=== PATIENT | female | born 1945 | race Caucasian/White ===

== ENCOUNTER → 2018-06-05 15:23 | Outpatient (CLI) | payer OTHER, SELFPAY ==
--- NOTE | 2018-06-05 | DI.MG.S_ITS ---
BILATERAL DIGITAL SCREENING MAMMOGRAM 3D/2D WITH CAD: 06/05/2018 CLINICAL: Routine screening. Comparison is made to exams dated: 05/30/2017 mammogram, 05/07/2016 mammogram, and 01/26/2015 mammogram - [facility]. There are scattered fibroglandular elements in both breasts. Current study was also evaluated with a Computer Aided Detection (CAD) system. No significant masses, calcifications, or other findings are seen in either breast. There has been no significant interval change. IMPRESSION: NEGATIVE There is no mammographic evidence of malignancy. A 1 year screening mammogram is recommended. This exam was interpreted at Station ID: [id number]. NOTE: For mammograms, a report in lay terms will be sent to the patient. Approximately 15% of breast malignancies will not be visualized mammographically. In the management of a palpable breast mass, a negative mammogram must not discourage biopsy of a clinically suspicious lesion. Electronically Signed By: Mauro wright/cesar:06/06/2018 03:12:15 letter sent: Normal Exam ACR BI-RADS Category 1: Negative 3341F
== END ==
PROVIDERS: Family Provider Physician Assistant; PCP Physician Assistant; Visit Provider Physician Assistant
DX: Z12.31 Encounter for screening mammogram for malignant neoplasm of breast (principal)
CPT/HCPCS: 77063; 77067

== ENCOUNTER → 2018-07-08 08:26 | Outpatient (CLI) | payer OTHER, SELFPAY ==
[2018-07-08 09:51] LABS: Cholesterol 240 mg/dL (140-199); HDL Cholesterol 72 mg/dL (40-60); LDL Cholesterol Calculated 129 mg/dL (<100); Triglycerides 195 mg/dL (35-150)
== END ==
PROVIDERS: PCP Physician Assistant; Visit Provider Physician Assistant
DX: E78.5 Hyperlipidemia, unspecified (principal)
CPT/HCPCS: 36415; 80061

== ENCOUNTER → 2018-08-20 15:22 | Outpatient (CLI) | payer OTHER, SELFPAY ==
--- NOTE | 2018-08-20 15:24 | DI.RAD.S_ITS ---
PROCEDURE: XR WRIST RT MIN 3V INDICATIONS: Bilateral wrist pain and pain at MCP of thumb TECHNIQUE: 4 views of the wrist were acquired. COMPARISON: None. FINDINGS: Bones: No fractures or dislocations. No suspicious bony lesions. 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 Soft tissues: No suspicious soft tissue calcifications. 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 Dictated by: Ibrahima Rodriguez M.D. on 08/20/2018 at 16:26 Approved by: Ibrahima Rodriguez M.D. on 08/20/2018 at 16:27
--- NOTE | 2018-08-20 15:24 | DI.RAD.S_ITS ---
PROCEDURE: XR WRIST LT MIN 3V INDICATIONS: Bilateral wrist pain and pain at MCP of thumb TECHNIQUE: 4 views of the wrist were acquired. COMPARISON: None. FINDINGS: Bones: No fractures or dislocations. No suspicious bony lesions. 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 Soft tissues: No suspicious soft tissue calcifications. 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 Dictated by: Ibrahima Rodriguez M.D. on 08/20/2018 at 16:24 Approved by: Ibrahima Rodriguez M.D. on 08/20/2018 at 16:26
== END ==
PROVIDERS: Family Provider Physician Assistant; PCP Physician Assistant; Visit Provider Physician Assistant
DX: M25.531 Pain in right wrist (principal); M25.532 Pain in left wrist; M18.0 Bilateral primary osteoarthritis of first carpometacarpal joints; M19.032 Primary osteoarthritis, left wrist; M19.031 Primary osteoarthritis, right wrist
CPT/HCPCS: 73110

== ENCOUNTER → 2018-12-10 07:51 | Outpatient (CLI) | payer MEDICARE, SELFPAY ==
[2018-12-10 09:19] LABS: Alanine Aminotransferase 36 IU/L (9-52); Albumin Globulin Ratio 1.5 (1.0-2.8); Alkaline Phosphatase 95 U/L (38-126); Aspartate Aminotransferase 23 IU/L (14-36); BUN Creatinine Ratio 21.4 (6-22); Bilirubin Total 0.4 mg/dL (0.2-1.3); Blood Urea Nitrogen 15 mg/dL (7-17); Calcium 9.5 mg/dL (8.4-10.2); Carbon Dioxide 24 mmol/L (22-32); Chloride 107 mmol/L (98-107); Cholesterol 229 mg/dL (140-199); Estimated Glomerular Filt Rate > 60.0 mL/min (>60); Globulin 2.7 g/dL (1.7-4.1); Glucose 82 mg/dL (80-110); HDL Cholesterol 65 mg/dL (40-60); HEMOLYSIS < 15 (0-50); LDL Cholesterol Calculated 132 mg/dL (<100); Sodium 140 mmol/L (137-145); Total Protein 6.7 g/dL (6.3-8.2); Triglycerides 161 mg/dL (35-150)
[2018-12-10 09:49] LABS: Thyroid Stimulating Hormone 1.09 uIU/mL (0.47-4.68)
== END ==
PROVIDERS: Family Provider Physician Assistant; PCP Physician Assistant; Visit Provider Physician Assistant
DX: E03.9 Hypothyroidism, unspecified (principal); E78.5 Hyperlipidemia, unspecified
CPT/HCPCS: 36415; 80053; 80061; 84443

== ENCOUNTER → 2019-01-19 13:17 | Outpatient (CLI) | payer MEDICARE, SELFPAY | PROVIDERS: Family Provider Physician Assistant; PCP Physician Assistant; Visit Provider Physician Assistant | DX: N30.01 Acute cystitis with hematuria (principal) | CPT/HCPCS: 87077; 87086; 87186 ==

== ENCOUNTER 2019-05-14 16:22 | Emergency (ER) | payer MEDICARE, SELFPAY ==
[2019-05-14 16:24] VITALS: BP 126/80; PULSE 89; RESP 22; TEMP 36.4; O2SAT 95; BMI 30.7
--- NOTE | 2019-05-14 16:31 | DI.RAD.S_ITS ---
PROCEDURE: XR CHEST 2V INDICATIONS: cough, told pneumonia TECHNIQUE: 2 views of the chest were acquired. COMPARISON: None. FINDINGS: Surgical changes and devices: None. Lungs and pleura: Minimal scattered streaky opacity. No focal consolidation identified. No pleural effusions or pneumothorax. Mediastinum: Mediastinal contours are normal. Heart size is normal. Bones and chest wall: No suspicious bony abnormalities. Soft tissues appear unremarkable. IMPRESSION: Mild scattered streaky opacity. Favor atelectasis but in the proper clinical setting pneumonia could have a similar appearance. Dictated by: Jaun Magallon M.D. on 05/14/2019 at 16:46 Approved by: Jaun Magallon M.D. on 05/14/2019 at 16:48
--- NOTE | 2019-05-14 16:55 | PC.NURSE ---
Evaluated by RT in triage after Ekg for respiratory difficulty. They state stable .
[2019-05-14 17:16] LABS: Alanine Aminotransferase 29 IU/L (9-52); Albumin 4.4 g/dL (3.5-5.0); Albumin Globulin Ratio 1.3 (1.0-2.8); Alkaline Phosphatase 120 U/L (38-126); Aspartate Aminotransferase 43 IU/L (14-36); BUN Creatinine Ratio 17.1 (6-22); Bilirubin Total 0.3 mg/dL (0.2-1.3); Blood Urea Nitrogen 12 mg/dL (7-17); Calcium 9.4 mg/dL (8.4-10.2); Carbon Dioxide 27 mmol/L (22-32); Chloride 100 mmol/L (98-107); Estimated Glomerular Filt Rate > 60.0 mL/min (>60); Globulin 3.5 g/dL (1.7-4.1); Glucose 109 mg/dL (80-110); HEMOLYSIS 19 (0-50); Potassium 4.9 mmol/L (3.4-5.1); Sodium 136 mmol/L (137-145); Total Protein 7.9 g/dL (6.3-8.2)
[2019-05-14 17:27] VITALS: BP 133/83; PULSE 82; RESP 18; TEMP 37.3; O2SAT 97
[2019-05-14 17:41] LABS: Add Manual Diff / Slide Review NO; Basophils Absolute Auto 0 /uL (0-100); Basophils Percent Auto 0.6 % (0-2); Eosinophils Absolute Auto 100 /uL (0-450); Eosinophils Percent Auto 0.9 % (2-4); Hematocrit 40.5 % (36-46); Lymphocytes Absolute Auto 1500 /uL (1100-4500); Lymphocytes Percent Auto 25.9 % (25-40); Mean Corpuscular HGB Conc 34.5 % (30-36); Mean Corpuscular Hemoglobin 31.1 PG (26-34); Mean Corpuscular Volume 90.1 fL (80-100); Monocytes Absolute Auto 500 /uL (0-900); Monocytes Percent Auto 9.3 % (3-14); Neutrophils Absolute Auto 3600 /uL (1500-7000); Neutrophils Percent Auto 63.3 % (50-75); Platelet Count 224 X10^3/uL (150-400); Red Cell Distribution Width 14.6 % (11.6-14.8); White Blood Cell Count 5.7 X10^3/uL (4.5-11.0)
[2019-05-14 18:02] LABS: Creatine Kinase 77 U/L (30-135)
[2019-05-14 18:07] LABS: B Type Natriuretic Peptide < 100 (<100)
--- NOTE | 2019-05-14 18:07 | ED.SOB ---
HPI - SOB/Dyspnea General Chief Complaint: Shortness of Breath/Dyspnea Stated Complaint: pneumonia,worsening Time Seen by Provider: 05/14/19 17:58 Source: patient Mode of arrival: ambulatory Limitations: no limitations History of Present Illness 73-year-old female who was seen by her primary doctor yesterday and was clinically diagnosed with pneumonia. Was started on azithromycin. She took the 1st dose of a yesterday and the 2nd dose of it today. She initially stated that she was told by her primary doctor that if she does not improve after 24 hours that she should come to the emergency department for evaluation. She states that she does not feel much better after the 2 doses of the antibiotics but really the reason that she came in today was because she has continued to have a cough and is now having pain when she coughs. She has been taking Mucinex. Related Data Home Medications Medication Instructions Recorded Confirmed ibuprofen 600 mg PO PRN PRN #0 03/14/17 05/14/19 multivitamin [Multiple Vitamins] 1 tab PO DAILY #0 03/14/17 05/14/19 olive leaf extract 250 mg capsule 250 mg PO BID cap 03/31/19 05/14/19 Calcium 2 cap PO BID 04/13/19 05/14/19 Previous Rx's Medication Instructions Recorded levothyroxine 88 mcg tablet 88 mcg PO QAM #90 tab 12/17/18 azithromycin 250 mg tablet See Rx Instructions PO .COMPLEX #6 05/13/19 tab benzonatate [Tessalon Perles] 100 mg PO BID-TID PRN #14 cap 05/14/19 Allergies Allergy/AdvReac Type Severity Reaction Status Date / Time Penicillins AdvReac Intermediate SWELLING Verified 05/13/19 10:05 AND HIVES IN BOTH WRISTS nitrofurantoin AdvReac Mild Abnormal Verified 05/13/19 10:05 heart beat Review of Systems Constitutional Denies fever(s) and Denies headache(s) ENT Ears, Nose, Mouth, and Throat: Denies headache(s) Cardiovascular Comments: Chest pain with cough Respiratory Reports cough Gastrointestinal Gastrointestinal: Denies abdominal pain, Denies nausea and Denies vomiting Integumentary/Breasts Denies lesions and Denies rash Neurologic Denies behavioral changes and Denies headache(s) Psychiatric Denies behavioral changes Hematologic/Lymphatic Denies easy bleeding and Denies easy bruising [facility] Medical History Hypothyroid (Acute) Social History Smoking Status: Never smoker second hand exposure: No alcohol intake: current (a glass of wine, once a week) substance use type: does not use Social History Smoking Status: Never smoker second hand exposure: No alcohol intake: current (a glass of wine, once a week) substance use type: does not use Exam Initial Vital Signs Initial Vital Signs: Vital Signs Temperature 97.5 F L 05/14/19 16:24 Pulse Rate 89 05/14/19 16:24 Respiratory Rate 22 05/14/19 16:24 Blood Pressure 126/80 05/14/19 16:24 Pulse Oximetry 95 05/14/19 16:24 Const General: cooperative, healthy appearing, comfortable, well developed, well groomed and No acute distress Orientation: alert, awake and oriented x3 HENMT Head: normal to inspection and normocephalic Resp Effort & Inspection: normal respiratory effort, cough, not labored and not tachypneic Auscultation: clear to auscultation bilaterally Cardio Rate: regular rate Rhythm: regular rhythm Skin Lesions: no lesions Rashes: no rashes Neuro General: alert and awake Cognition: normal cognition Speech: speech normal Extrem General: normal to inspection and capillary refill normal Psych Appearance: grossly normal and well kempt Course Orders Ordered: ED Orders 05/14/19 16:28 EKG-12 Lead Stat 05/14/19 16:31 Consult to Respiratory Therapy Evaluate & Treat XR chest 2V Stat 05/14/19 16:45 B Type Natriuretic Peptide Stat Complete Blood Count AUTO DIFF Stat Comprehensive Metabolic Panel Stat Troponin & CK Cardiac Panel Stat Vital Signs - 8 hr 05/14/19 16:24 05/14/19 17:27 05/14/19 18:33 Temperature 97.5 F L 99.1 F Pulse Rate 89 82 92 H Respiratory Rate 22 18 15 Blood Pressure 126/80 Blood Pressure [Right Arm] 133/83 124/78 Pulse Oximetry 95 97 95 MDM - SOB/Dyspnea Lab Data Attestation: I reviewed the patient's lab results. Result diagrams: 05/14/19 16:45 05/14/19 16:45 Lab Results 05/14/19 05/14/19 05/14/19 Range/Units 16:45 16:45 16:45 WBC 5.7 (4.5-11.0) X10^3/uL RBC 4.50 (4.0-5.2) X10^6/uL Hgb 14.0 (12.0-16.0) g/dL Hct 40.5 (36-46) % MCV 90.1 (80-100) fL MCH 31.1 (26-34) PG MCHC 34.5 (30-36) % RDW 14.6 (11.6-14.8) % Plt Count 224 (150-400) X10^3/uL Neut % (Auto) 63.3 (50-75) % Lymph % (Auto) 25.9 (25-40) % [place] % (Auto) 9.3 (3-14) % Eos % (Auto) 0.9 L (2-4) % Baso % (Auto) 0.6 (0-2) % Neut # (Auto) 3600 (0168-7336) /uL Lymph # (Auto) 1500 (8610-1479) /uL [place] # (Auto) 500 (0-900) /uL Eos # (Auto) 100 (0-450) /uL Baso # (Auto) 0 (0-100) /uL Sodium 136 L (137-145) mmol/L Potassium 4.9 (3.4-5.1) mmol/L Chloride 100 (98-107) mmol/L Carbon Dioxide 27 (22-32) mmol/L BUN 12 (7-17) mg/dL Creatinine 0.70 (0.52-1.04) mg/dL Estimated GFR > 60.0 (>60) mL/min BUN/Creatinine Ratio 17.1 (6-22) Glucose 109 (80-110) mg/dL Calcium 9.4 (8.4-10.2) mg/dL Total Bilirubin 0.3 (0.2-1.3) mg/dL AST 43 H (14-36) IU/L ALT 29 (9-52) IU/L Alkaline Phosphatase 120 (38-126) U/L Total Creatine Kinase 77 (30-135) U/L CK-MB (CK-2) TNP CK-MB (CK-2) Rel Index TNP Troponin I < 0.012 (0.01-0.034) ng/mL B-Natriuretic Peptide (<100) Total Protein 7.9 (6.3-8.2) g/dL Albumin 4.4 (3.5-5.0) g/dL Globulin 3.5 (1.7-4.1) g/dL Albumin/Globulin Ratio 1.3 (1.0-2.8) 05/14/19 Range/Units 16:45 WBC (4.5-11.0) X10^3/uL RBC (4.0-5.2) X10^6/uL Hgb (12.0-16.0) g/dL Hct (36-46) % MCV (80-100) fL MCH (26-34) PG MCHC (30-36) % RDW (11.6-14.8) % Plt Count (150-400) X10^3/uL Neut % (Auto) (50-75) % Lymph % (Auto) (25-40) % [place] % (Auto) (3-14) % Eos % (Auto) (2-4) % Baso % (Auto) (0-2) % Neut # (Auto) (4072-8832) /uL Lymph # (Auto) (1439-1692) /uL [place] # (Auto) (0-900) /uL Eos # (Auto) (0-450) /uL Baso # (Auto) (0-100) /uL Sodium (137-145) mmol/L Potassium (3.4-5.1) mmol/L Chloride (98-107) mmol/L Carbon Dioxide (22-32) mmol/L BUN (7-17) mg/dL Creatinine (0.52-1.04) mg/dL Estimated GFR (>60) mL/min BUN/Creatinine Ratio (6-22) Glucose (80-110) mg/dL Calcium (8.4-10.2) mg/dL Total Bilirubin (0.2-1.3) mg/dL AST (14-36) IU/L ALT (9-52) IU/L Alkaline Phosphatase (38-126) U/L Total Creatine Kinase (30-135) U/L CK-MB (CK-2) CK-MB (CK-2) Rel Index Troponin I (0.01-0.034) ng/mL B-Natriuretic Peptide < 100 (<100) Total Protein (6.3-8.2) g/dL Albumin (3.5-5.0) g/dL Globulin (1.7-4.1) g/dL Albumin/Globulin Ratio (1.0-2.8) Imaging Data Chest x-ray: Radiologist's impression: [address] [id number] XRay Report Signed Patient: [place] Pham EMR#: [id number] : 6Acct:[id number] Age/Sex: 73 / FDate of Service: 05/14/19 Loc: ED Accession Number: [id number] Procedure: XR chest 2V Ordering Provider: Bernie Alvarenga D.O. PROCEDURE: XR CHEST 2V INDICATIONS: cough, told pneumonia TECHNIQUE: 2 views of the chest were acquired. COMPARISON: None. FINDINGS: Surgical changes and devices: None. Lungs and pleura: Minimal scattered streaky opacity. No focal consolidation identified. No pleural effusions or pneumothorax. Mediastinum: Mediastinal contours are normal. Heart size is normal. Bones and chest wall: No suspicious bony abnormalities. Soft tissues appear unremarkable. IMPRESSION: Mild scattered streaky opacity. Favor atelectasis but in the proper clinical setting pneumonia could have a similar appearance. Dictated by: Jaun Magallon M.D. on 05/14/2019 at 16:46 Approved by: Jaun Magallon M.D. on 05/14/2019 at 16:48 [facility] Narrative Medical decision making narrative: No respiratory distress. Her chest x-ray does have some findings consistent with pneumonia however she is currently on azithromycin for this. We did discuss the cough. Informed the patient that there is no medicine that will be guarantee to take the cough away. She is going to continue with the Mucinex. Will start her on Tessalon Perles. Patient does not need admitted to the hospital. Will hold on further workup. She was given return precautions and follow-up instructions. She expressed understanding and agreement plan. Discharge Plan Departure Patient Disposition: Home Clinical Impression: Cough Pneumonia Qualifiers: Pneumonia type: due to unspecified organism Laterality: unspecified laterality Lung location: unspecified part of lung Qualified Code(s): J18.9 - Pneumonia, unspecified organism Discharge Date/Time: 05/14/19 18:59 Interventions: ED Discharge Assessment Last Done: 05/14/19 18:59 Instructions: DI for Cough -- Adult Activity Restrictions/Additional Instructions: Continue all of your antibiotics as directed start taking the prescription for the cough that you were given today. Remember that this may not take her cough completely away. Return to the emergency department for any new or worsening symptoms Prescriptions: New benzonatate [Tessalon Perles] 100 mg capsule 100 mg PO BID-TID PRN (Reason: cough) Qty: 14 RF: 0 No Action levothyroxine 88 mcg tablet 88 mcg PO QAM Qty: 90 RF: 3 ibuprofen 200 MG tablet 600 mg PO PRN PRN (Reason: pain) Qty: 0 RF: 0 multivitamin [Multiple Vitamins] 1 EACH tablet 1 tab PO DAILY Qty: 0 RF: 0 Calcium 2 cap PO BID RF: 0 azithromycin 250 mg tablet See Rx Instructions PO .COMPLEX Qty: 6 RF: 0 olive leaf extract 250 mg capsule 250 mg PO BID RF: 0 Referrals: Sakshi Galvan PA-C [Primary Care Provider] -
[2019-05-14 18:15] LABS: Troponin I < 0.012 ng/mL (0.01-0.034)
[2019-05-14 18:33] VITALS: BP 124/78; PULSE 92; RESP 15; O2SAT 95
== END 2019-05-14 18:59 | disposition home or self-care (01) ==
PROVIDERS: Emergency Medicine; Emergency Provider Emergency Medicine; Family Provider Physician Assistant; PCP Physician Assistant
DX: J18.9 Pneumonia, unspecified organism (principal)
CPT/HCPCS: 36415; 71046; 80053; 82550; 83880; 84484; 85025; 93005; 99282; 99285

== ENCOUNTER → 2019-06-16 16:22 | Outpatient (CLI) | payer MEDICARE, SELFPAY ==
--- NOTE | 2019-06-16 | DI.MG.S_ITS ---
BILATERAL DIGITAL SCREENING MAMMOGRAM 3D/2D WITH CAD: 06/16/2019 CLINICAL: Routine screening. Comparison is made to exams dated: 06/05/2018 mammogram, 05/30/2017 mammogram, and 05/07/2016 mammogram - [facility]. There are scattered fibroglandular elements in both breasts. Current study was also evaluated with a Computer Aided Detection (CAD) system. No significant masses, calcifications, or other findings are seen in either breast. There has been no significant interval change. IMPRESSION: NEGATIVE There is no mammographic evidence of malignancy. A 1 year screening mammogram is recommended. This exam was interpreted at Station ID: [id number]. NOTE: For mammograms, a report in lay terms will be sent to the patient. Approximately 15% of breast malignancies will not be visualized mammographically. In the management of a palpable breast mass, a negative mammogram must not discourage biopsy of a clinically suspicious lesion. Electronically Signed By: Fany pack/cesar:06/16/2019 16:54:17 letter sent: Normal Exam ACR BI-RADS Category 1: Negative 3341F
== END ==
PROVIDERS: PCP Physician Assistant; Visit Provider Physician Assistant
DX: Z12.31 Encounter for screening mammogram for malignant neoplasm of breast (principal)
CPT/HCPCS: 77063; 77067

== ENCOUNTER → 2019-07-29 07:15 | Outpatient (CLI) | payer MEDICARE, SELFPAY ==
[2019-07-29 08:11] LABS: Cholesterol 246 mg/dL (140-199); HDL Cholesterol 62 mg/dL (40-60); LDL Cholesterol Calculated 141 mg/dL (<100); Triglycerides 217 mg/dL (35-150)
== END ==
PROVIDERS: PCP Physician Assistant; Visit Provider Physician Assistant
DX: E78.2 Mixed hyperlipidemia (principal)
CPT/HCPCS: 36415; 80061

== ENCOUNTER → 2019-07-31 14:36 | Outpatient (CLI) | payer MEDICARE, SELFPAY | PROVIDERS: PCP Physician Assistant; Visit Provider Physician Assistant | DX: M81.0 Age-related osteoporosis without current pathological fracture (principal); Z78.0 Asymptomatic menopausal state; Z82.62 Family history of osteoporosis | CPT/HCPCS: 77080 ==

== ENCOUNTER → 2019-12-08 13:22 | Outpatient (CLI) | payer MEDICARE, SELFPAY | PROVIDERS: PCP Physician Assistant; Visit Provider Family Medicine | DX: N39.0 Urinary tract infection, site not specified (principal) | CPT/HCPCS: 87077; 87086; 87186 ==

== ENCOUNTER → 2020-03-10 11:46 | Outpatient (CLI) | payer MEDICARE, SELFPAY ==
[2020-03-10 12:22] LABS: Hematocrit 38.2 % (36-46); Hemoglobin 13.1 g/dL (12.0-16.0); Mean Corpuscular HGB Conc 34.4 % (30-36); Mean Corpuscular Hemoglobin 31.2 PG (26-34); Mean Corpuscular Volume 90.8 fL (80-100); Platelet Count 251 X10^3/uL (150-400); Red Blood Cell Count 4.21 X10^6/uL (4.0-5.2); Red Cell Distribution Width 14.2 % (11.6-14.8); White Blood Cell Count 5.1 X10^3/uL (4.5-11.0)
[2020-03-10 12:50] LABS: Alanine Aminotransferase 21 IU/L (<35); Albumin 4.6 g/dL (3.5-5.0); Albumin Globulin Ratio 1.7 (1.0-2.8); Alkaline Phosphatase 93 U/L (38-126); Aspartate Aminotransferase 30 IU/L (14-36); BUN Creatinine Ratio 18.7 (6-22); Bilirubin Total 0.3 mg/dL (0.2-1.3); Blood Urea Nitrogen 14 mg/dL (7-17); Calcium 9.9 mg/dL (8.4-10.2); Carbon Dioxide 26 mmol/L (22-32); Chloride 104 mmol/L (98-107); Cholesterol 212 mg/dL (140-199); Estimated Glomerular Filt Rate > 60.0 mL/min (>60); Globulin 2.7 g/dL (1.7-4.1); Glucose 100 mg/dL (80-110); HDL Cholesterol 61 mg/dL (40-60); HEMOLYSIS < 15 (0-50); LDL Cholesterol Calculated 113 mg/dL (<100); Potassium 4.8 mmol/L (3.4-5.1); Sodium 136 mmol/L (137-145); Total Protein 7.3 g/dL (6.3-8.2); Triglycerides 188 mg/dL (35-150)
[2020-03-10 13:09] LABS: TSH w/ Reflex to FT4 1.07 uIU/mL (0.47-4.68)
== END ==
PROVIDERS: PCP Registered Nurse Diabetes Educator; Referring Provider Registered Nurse Diabetes Educator; Visit Provider Registered Nurse Diabetes Educator
DX: E78.2 Mixed hyperlipidemia (principal); E03.9 Hypothyroidism, unspecified
CPT/HCPCS: 36415; 80053; 80061; 84443; 85027

== ENCOUNTER → 2020-06-24 07:53 | Outpatient (CLI) | payer MEDICARE, SELFPAY ==
[2020-06-24 10:02] LABS: Cholesterol 227 mg/dL (140-199); Glucose 79 mg/dL (80-110); HDL Cholesterol 79 mg/dL (40-60); LDL Cholesterol Calculated 117 mg/dL (<100); Triglycerides 155 mg/dL (35-150)
== END ==
PROVIDERS: PCP Registered Nurse Diabetes Educator; Referring Provider Registered Nurse Diabetes Educator; Visit Provider Registered Nurse Diabetes Educator
DX: Z13.1 Encounter for screening for diabetes mellitus (principal); E78.2 Mixed hyperlipidemia
CPT/HCPCS: 36415; 80061; 82947

== ENCOUNTER → 2020-06-28 16:15 | Outpatient (CLI) | payer MEDICARE, SELFPAY ==
--- NOTE | 2020-06-28 16:17 | DI.MG.S_ITS ---
BILATERAL DIGITAL SCREENING MAMMOGRAM 3D/2D WITH CAD: 06/28/2020 CLINICAL: Routine screening. Comparison is made to exams dated: 06/16/2019 mammogram, 06/05/2018 mammogram, and 05/30/2017 mammogram - [facility]. There are scattered fibroglandular elements in both breasts. Current study was also evaluated with a Computer Aided Detection (CAD) system. No significant masses, calcifications, or other findings are seen in either breast. There has been no significant interval change. IMPRESSION: NEGATIVE There is no mammographic evidence of malignancy. A 1 year screening mammogram is recommended. This exam was interpreted at Station ID: [id number]. NOTE: For mammograms, a report in lay terms will be sent to the patient. Approximately 15% of breast malignancies will not be visualized mammographically. In the management of a palpable breast mass, a negative mammogram must not discourage biopsy of a clinically suspicious lesion. Electronically Signed By: Alejandro miranda/cesar:06/28/2020 16:49:23 letter sent: Normal Exam ACR BI-RADS Category 1: Negative 3341F
== END ==
PROVIDERS: PCP Registered Nurse Diabetes Educator; Referring Provider Registered Nurse Diabetes Educator; Visit Provider Registered Nurse Diabetes Educator
DX: Z12.31 Encounter for screening mammogram for malignant neoplasm of breast (principal)
CPT/HCPCS: 77063; 77067

== ENCOUNTER → 2021-01-25 14:16 | Outpatient (CLI) | payer MEDICARE, SELFPAY | PROVIDERS: PCP Registered Nurse Diabetes Educator; Visit Provider Student in an Organized Health Care Education/Training Program | DX: R30.0 Dysuria (principal) | CPT/HCPCS: 87077; 87086; 87186 ==

== ENCOUNTER → 2021-03-23 07:15 | Outpatient (CLI) | payer MEDICARE, SELFPAY ==
[2021-03-23 07:45] LABS: Hematocrit 38.4 % (36-46); Hemoglobin 12.6 g/dL (12.0-16.0); Mean Corpuscular HGB Conc 32.9 % (30-36); Mean Corpuscular Volume 91.1 fL (80-100); Platelet Count 269 X10^3/uL (150-400); Red Blood Cell Count 4.22 X10^6/uL (4.0-5.2); Red Cell Distribution Width 14.2 % (11.6-14.8); White Blood Cell Count 5.2 X10^3/uL (4.5-11.0)
[2021-03-23 08:03] LABS: Alanine Aminotransferase 18 IU/L (<35); Albumin 4.1 g/dL (3.5-5.0); Albumin Globulin Ratio 1.4 (1.0-2.8); Alkaline Phosphatase 93 U/L (38-126); Aspartate Aminotransferase 29 IU/L (14-36); BUN Creatinine Ratio 14.3 (6-22); Bilirubin Total 0.6 mg/dL (0.2-1.3); Blood Urea Nitrogen 10 mg/dL (7-17); Calcium 9.4 mg/dL (8.4-10.2); Carbon Dioxide 26 mmol/L (22-32); Chloride 104 mmol/L (98-107); Cholesterol 195 mg/dL (140-199); Estimated Glomerular Filt Rate > 60.0 mL/min (>60); Globulin 2.9 g/dL (1.7-4.1); Glucose 91 mg/dL (80-110); HDL Cholesterol 61 mg/dL (40-60); HEMOLYSIS < 15 (0-50); LDL Cholesterol Calculated 106 mg/dL (<100); Potassium 4.2 mmol/L (3.4-5.1); Sodium 137 mmol/L (137-145); Triglycerides 140 mg/dL (35-150)
[2021-03-23 08:47] LABS: TSH w/ Reflex to FT4 1.22 uIU/mL (0.47-4.68)
== END ==
PROVIDERS: PCP Registered Nurse Diabetes Educator; Referring Provider Registered Nurse Diabetes Educator; Visit Provider Registered Nurse Diabetes Educator
DX: E03.9 Hypothyroidism, unspecified (principal); E78.5 Hyperlipidemia, unspecified; R73.9 Hyperglycemia, unspecified; R74.8 Abnormal levels of other serum enzymes; Z86.2 Personal history of diseases of the blood and blood-forming organs and certain disorders involving the immune mechanism
CPT/HCPCS: 36415; 80053; 80061; 84443; 85027

== ENCOUNTER → 2021-04-24 16:45 | Outpatient (CLI) | payer MEDICARE, SELFPAY ==
[2021-04-24 18:24] LABS: COVID19 -Nasal RAPID Negative (Negative)
== END ==
PROVIDERS: PCP Registered Nurse Diabetes Educator; Visit Provider Physician Assistant
DX: J02.9 Acute pharyngitis, unspecified (principal); R51.9 Headache, unspecified; Z20.822 Contact with and (suspected) exposure to COVID-19
CPT/HCPCS: 87635

== ENCOUNTER → 2021-06-29 10:04 | Outpatient (CLI) | payer MEDICARE, SELFPAY ==
--- NOTE | 2021-06-29 | DI.MG.S_ITS ---
BILATERAL DIGITAL SCREENING MAMMOGRAM 3D/2D WITH CAD: 06/29/2021 CLINICAL: Routine screening. Comparison is made to exams dated: 06/28/2020 mammogram, 06/16/2019 mammogram, and 06/05/2018 mammogram - [facility]. There are scattered fibroglandular elements in both breasts. Current study was also evaluated with a Computer Aided Detection (CAD) system. No significant masses, calcifications, or other findings are seen in either breast. There has been no significant interval change. IMPRESSION: NEGATIVE There is no mammographic evidence of malignancy. A 1 year screening mammogram is recommended. This exam was interpreted at Station ID: [id number]. NOTE: For mammograms, a report in lay terms will be sent to the patient. Approximately 15% of breast malignancies will not be visualized mammographically. In the management of a palpable breast mass, a negative mammogram must not discourage biopsy of a clinically suspicious lesion. Electronically Signed By: Alejandro miranda/cesar:06/29/2021 12:54:06 letter sent: Normal Exam ACR BI-RADS Category 1: Negative 3341F
== END ==
PROVIDERS: PCP Registered Nurse Diabetes Educator; Referring Provider Registered Nurse Diabetes Educator; Visit Provider Registered Nurse Diabetes Educator
DX: Z12.31 Encounter for screening mammogram for malignant neoplasm of breast (principal)
CPT/HCPCS: 77063; 77067

== ENCOUNTER → 2021-07-11 16:08 | Outpatient (CLI) | payer MEDICARE, SELFPAY ==
[2021-07-11 17:22] LABS: C-Reactive Protein Quant < 0.5 mg/dL (<1.0)
[2021-07-12 14:54] LABS: Occult Blood 1 Negative (Negative)
[2021-07-12 15:42] LABS: Deamidated Gliadin Ab IgA 4 units (0-19); Deamidated Gliadin Ab IgG 2 units (0-19); Immunoglobulin A,Qn 228 mg/dL (64-422); t-Transglutaminase IgA <2 U/mL (0-3)
[2021-07-13 15:09] LABS: Almond IgE <0.10 kU/L (Class 0); Cashew Nut IgE <0.10 kU/L (Class 0); Codfish Allergy IgE < 0.10 kU/L (Class 0); Egg White IgE <0.10 kU/L (Class 0); Hazelnut IgE <0.10 kU/L (Class 0); Milk IgE <0.10 kU/L (Class 0); Peanut IgE <0.10 kU/L (Class 0); Salmon Allergy IgE < 0.10 kU/L (Class 0); Scallop Allergy IgE < 0.10 kU/L (Class 0); Sesame seed Allergy IgE < 0.10 kU/L (Class 0); Shrimp IgE <0.10 kU/L (Class 0); Soybean IgE <0.10 kU/L (Class 0); Tuna Allergy IgE < 0.10 kU/L (Class 0); Walnut IgE <0.10 kU/L (Class 0); Wheat Allergy IgE < 0.10 kU/L (Class 0)
[2021-07-14 16:44] LABS: Calprotectin, Stool 37 ug/g (0-120)
== END ==
PROVIDERS: PCP Registered Nurse Diabetes Educator; Referring Provider Registered Nurse Diabetes Educator; Visit Provider Registered Nurse Diabetes Educator
DX: K52.9 Noninfective gastroenteritis and colitis, unspecified (principal)
CPT/HCPCS: 36415; 82270; 82784; 83516; 83993; 86003; 86140

== ENCOUNTER → 2021-10-03 10:10 | Outpatient (CLI) | payer MEDICARE, SELFPAY | PROVIDERS: PCP Registered Nurse Diabetes Educator; Referring Provider Registered Nurse Diabetes Educator; Visit Provider Registered Nurse Diabetes Educator | DX: M85.88 Other specified disorders of bone density and structure, other site (principal); Z78.0 Asymptomatic menopausal state; Z82.62 Family history of osteoporosis | CPT/HCPCS: 77080 ==

== ENCOUNTER → 2021-12-29 14:07 | Outpatient (CLI) | payer MEDICARE, SELFPAY ==
--- NOTE | 2021-12-29 14:08 | DI.US.S_ITS ---
ULTRASOUND OF LEFT BREAST: 12/29/2021 CLINICAL: Left axillary 'irritation' x years. Comparison is made to exams dated: 06/29/2021 mammogram, 06/28/2020 mammogram, and 06/16/2019 mammogram - [facility]. Color flow, Doppler, and continuous wave Doppler ultrasound of the left breast were performed. No abnormality which corresponds with the area of itching is identified. IMPRESSION: NEGATIVE There is no sonographic evidence of malignancy. There is no abnormality seen in the left breast to correspond with the area of clinical concern in the axilla, however, clinical followup is recommended. Return to annual mammogram screening schedule is recommended. This exam was interpreted at Station ID: [id number]. Electronically Signed By: Rusty Silverman acr/:12/29/2021 15:17:45 letter sent: Normal Exam Ultrasound BI-RADS: 1 Negative
== END ==
PROVIDERS: PCP Registered Nurse Diabetes Educator; Referring Provider Registered Nurse Diabetes Educator; Visit Provider Registered Nurse Diabetes Educator
DX: M79.622 Pain in left upper arm (principal); N64.4 Mastodynia
CPT/HCPCS: 76882

== ENCOUNTER → 2022-01-04 14:27 | Outpatient (CLI) | payer MEDICARE, SELFPAY ==
[2022-01-04 15:26] LABS: BUN Creatinine Ratio 24.1 (6-22); Blood Urea Nitrogen 20 mg/dL (7-17); Calcium 9.1 mg/dL (8.4-10.2); Carbon Dioxide 26 mmol/L (22-32); Chloride 107 mmol/L (98-107); Estimated Glomerular Filt Rate > 60 mL/min (>60); Glucose 89 mg/dL (80-110); HEMOLYSIS < 15 (0-50); Potassium 4.6 mmol/L (3.4-5.1); Sodium 138 mmol/L (137-145)
== END ==
PROVIDERS: PCP Registered Nurse Diabetes Educator; Referring Provider Registered Nurse Diabetes Educator; Visit Provider Registered Nurse Diabetes Educator
DX: R60.9 Edema, unspecified (principal)
CPT/HCPCS: 36415; 80048

== ENCOUNTER → 2022-07-17 11:47 | Outpatient (CLI) | payer MEDICARE, SELFPAY ==
--- NOTE | 2022-07-17 | DI.MG.S_ITS ---
BILATERAL DIGITAL SCREENING MAMMOGRAM 3D/2D WITH CAD: 07/17/2022 CLINICAL: Routine screening. Comparison is made to exams dated: 06/29/2021 mammogram, 06/28/2020 mammogram, and 06/16/2019 mammogram - [facility]. There are scattered areas of fibroglandular density in both breasts (category b / 25%-50% glandular tissue). Current study was also evaluated with a Computer Aided Detection (CAD) system. No significant masses, calcifications, or other findings are seen in either breast. There has been no significant interval change. IMPRESSION: NEGATIVE There is no mammographic evidence of malignancy. A 1 year screening mammogram is recommended. Based on the Tyrer Cuzick model (a risk assessment model) the patient's lifetime risk is 3.6% and her 10 year risk is 0.0%. According to the ACR, ACS, and NCCN guidelines, an annual breast MRI exam along with mammogram is recommended if the patient's lifetime risk is 20% or greater. This exam was interpreted at Station ID: [id number]. NOTE: For mammograms, a report in lay terms will be sent to the patient. Approximately 15% of breast malignancies will not be visualized mammographically. In the management of a palpable breast mass, a negative mammogram must not discourage biopsy of a clinically suspicious lesion. Electronically Signed By: Sp gee/cesar:07/17/2022 13:38:30 letter sent: Normal Exam ACR BI-RADS Category 1: Negative 3341F
== END ==
PROVIDERS: PCP Registered Nurse Diabetes Educator; Referring Provider Registered Nurse Diabetes Educator; Visit Provider Registered Nurse Diabetes Educator
DX: Z12.31 Encounter for screening mammogram for malignant neoplasm of breast (principal)
CPT/HCPCS: 77063; 77067

== ENCOUNTER → 2022-08-14 16:00 | Outpatient (CLI) | payer MEDICARE, SELFPAY | PROVIDERS: PCP Registered Nurse Diabetes Educator; Visit Provider Physician Assistant Medical | DX: R30.0 Dysuria (principal) | CPT/HCPCS: 87077; 87086; 87186 ==

== ENCOUNTER → 2022-10-10 16:44 | Outpatient (CLI) | payer MEDICARE, SELFPAY ==
[2022-10-10 17:17] LABS: Add Manual Diff / Slide Review NO; Basophils Absolute Auto 0 /uL (0-100); Basophils Percent Auto 0.4 % (0-2); Eosinophils Absolute Auto 100 /uL (0-450); Eosinophils Percent Auto 1.3 % (2-4); Hematocrit 37.7 % (36-46); Hemoglobin 12.9 g/dL (12.0-16.0); Lymphocytes Absolute Auto 2800 /uL (1100-4500); Lymphocytes Percent Auto 35.5 % (25-40); Mean Corpuscular HGB Conc 34.2 % (30-36); Mean Corpuscular Hemoglobin 30.7 PG (26-34); Mean Corpuscular Volume 89.9 fL (80-100); Monocytes Absolute Auto 600 /uL (0-900); Monocytes Percent Auto 7.2 % (3-14); Neutrophils Absolute Auto 4400 /uL (1500-7000); Neutrophils Percent Auto 55.6 % (50-75); Platelet Count 267 X10^3/uL (150-400); Red Blood Cell Count 4.19 X10^6/uL (4.0-5.2); Red Cell Distribution Width 14.5 % (11.6-14.8)
[2022-10-10 18:18] LABS: Free T3, Triiodothyronine Free 3.35 pg/mL (2.77-5.27); Free T4, Direct Thyroxine 1.23 ng/dL (0.78-2.19)
[2022-10-10 18:26] LABS: Alanine Aminotransferase 29 IU/L (<35); Alkaline Phosphatase 102 U/L (38-126); Aspartate Aminotransferase 31 IU/L (14-36); BUN Creatinine Ratio 28.4 (6-22); Bilirubin Total 0.3 mg/dL (0.2-1.3); Blood Urea Nitrogen 23 mg/dL (7-17); Calcium 9.3 mg/dL (8.4-10.2); Carbon Dioxide 25 mmol/L (22-32); Chloride 103 mmol/L (98-107); Estimated Glomerular Filt Rate > 60 mL/min (>60); Glucose 96 mg/dL (80-110); HEMOLYSIS < 15 (0-50); Potassium 4.8 mmol/L (3.4-5.1); Sodium 137 mmol/L (137-145); Total Protein 7.4 g/dL (6.3-8.2)
[2022-10-10 18:32] LABS: Thyroid Stimulating Hormone 1.06 uIU/mL (0.47-4.68)
[2022-10-12 16:47] LABS: Albumin 4.3 g/dL (3.5-5.0); Albumin Globulin Ratio 1.4 (1.0-2.8); Globulin 3.1 g/dL (1.7-4.1)
== END ==
PROVIDERS: PCP Nurse Practitioner; Referring Provider Nurse Practitioner; Visit Provider Nurse Practitioner
DX: E03.9 Hypothyroidism, unspecified (principal); R53.83 Other fatigue
CPT/HCPCS: 36415; 80053; 84439; 84443; 84481; 85025

== ENCOUNTER → 2023-07-30 14:22 | Outpatient (CLI) | payer MEDICARE, SELFPAY ==
--- NOTE | 2023-07-30 | DI.MG.S_ITS ---
BILATERAL DIGITAL SCREENING MAMMOGRAM 3D/2D WITH CAD: 07/30/2023 CLINICAL: Routine screening. Comparison is made to exams dated: 07/17/2022 mammogram, 06/29/2021 mammogram, and 06/28/2020 mammogram - [facility]. There are scattered areas of fibroglandular density in both breasts (category b / 25%-50% glandular tissue). Current study was also evaluated with a Computer Aided Detection (CAD) system. No significant masses, calcifications, or other findings are seen in either breast. There has been no significant interval change. IMPRESSION: NEGATIVE There is no mammographic evidence of malignancy. A 1 year screening mammogram is recommended. Based on the Tyrer Cuzick model (a risk assessment model) the patient's lifetime risk is 3.2% and her 10 year risk is 0.0%. According to the ACR, ACS, and NCCN guidelines, an annual breast MRI exam along with mammogram is recommended if the patient's lifetime risk is 20% or greater. This exam was interpreted at Station ID: [id number]. NOTE: For mammograms, a report in lay terms will be sent to the patient. Approximately 15% of breast malignancies will not be visualized mammographically. In the management of a palpable breast mass, a negative mammogram must not discourage biopsy of a clinically suspicious lesion. Electronically Signed By: Jaun faria/cesar:07/30/2023 16:53:17 letter sent: Normal Exam ACR BI-RADS Category 1: Negative 3341F
== END ==
PROVIDERS: PCP Nurse Practitioner; Referring Provider Nurse Practitioner; Visit Provider Nurse Practitioner
DX: Z12.31 Encounter for screening mammogram for malignant neoplasm of breast (principal)
CPT/HCPCS: 77063; 77067

== ENCOUNTER → 2023-12-04 13:47 | Outpatient (CLI) | payer MEDICARE, SELFPAY ==
[2023-12-04 15:46] LABS: Thyroid Stimulating Hormone 0.611 uIU/mL (0.47-4.68)
== END ==
PROVIDERS: PCP Nurse Practitioner; Referring Provider Nurse Practitioner; Visit Provider Nurse Practitioner
DX: E03.9 Hypothyroidism, unspecified (principal); N89.8 Other specified noninflammatory disorders of vagina
CPT/HCPCS: 36415; 84443; 87070; 87205

== ENCOUNTER 2024-03-20 11:15 | Outpatient (RCR) | payer MEDICARE, SELFPAY ==
--- NOTE | 2024-02-20 17:51 | PT.OIE ---
Current Diagnoses Other specified disorders of muscle (02/20/24) Full incontinence of feces (02/20/24) Past Medical History (Last Updated 12/04/23 @ 14:48 by KELLI Zavala) Hypothyroid Insomnia Obesity Seborrheic keratosis Urinary tract infection Visit Care Team Role Provider Type KELLI Zavala Attending Provider Advanced Didactic Instructor Family Provider Primary Care Provider Referring Provider Specialty: Family Practice Address: [address] [place] [address], [facility] Email: [email or web address] Physical Therapy Initial Evaluation PT-OP-A Visit Information Start: 02/20/24 08:40 Freq: Status: Active Protocol: Document 02/20/24 13:50 LRN (Rec: 02/20/24 14:38 LRN [id number]) Out-Patient Physical Therapy Visit Information Visit Information Visit Type Initial Evaluation Visit Start Time 13:50 Visit Stop Time 14:33 Visit Number 1 Evaluation Information Evaluation Date 02/20/24 Precautions Precautions Osteoporosis, Arthritis, sanjuana knee replacements in 2015 PT-OP-B Current Condition Start: 02/20/24 08:40 Freq: Status: Active Protocol: Document 02/20/24 13:50 LRN (Rec: 02/20/24 14:38 LRN [id number]) Current Condition History of Current Condition Onset Date 2 months ago Current Complaints Mild anal leakage at the opening, skin burning pain diaper rash like History of Current Condition Insidious onset within the past 6 yr, a little anal leakage. Has noticed if she stays away from sugary foods, she has BM's that are less extra-soft. When really bad she takes anti-diarrhea medicine. Doesn't wear a pad because the fecal matter stays in the anus. A good day is when she has a BM and no leakage afterward. A slightly worse day is when she has a BM but has to go back and clean out the anus once with her finger. A bad day is when she has to go back several times to remove the feces by finger. Prior Treatments and Tests None Developmental History Developmental History 4G4P vaginal births w/o complications, except tore with first child and was told she might someday need a repair of something. Treatment Goals Patient/Caregiver Goals Pt goals: - to have a normal bowel movement to not have to digitally remove remaining feces from anus, HEP. Personal Factors Other Personal Factors That May Effect Arthritis, sanjuana knee Therapy/Recovery replacements in 2016. PT-OP-C Subjective Start: 02/20/24 08:40 Freq: Status: Active Protocol: Document 02/20/24 13:50 LRN (Rec: 02/20/24 14:38 LRN [id number]) Patient Questionnaires Pelvic Floor Distress Inventory Questionnaire (PFDI- SF20) Pelvic Floor Score 18.75 Pelvic Pain and Urgency/Frequency Patient Symptom Scale Pelvic Pain Score 1 OP-PT Pain Assessment Pain Assessment Grid Paper Pain Assessment Grid Completed Yes Location Sanjuana Knees Pain Location Details Anterior knees Intensity 4 Scale Used Numeric (0 - 10) Description- Other Pain ranges 3-4/10 PT-OP-I Pelvic Floor Start: 02/20/24 08:40 Freq: Status: Active Protocol: Document 02/20/24 13:50 LRN (Rec: 02/20/24 14:38 LRN [id number]) Pelvic Floor Assessment Bowel Bowel Surgery No Bowel Symptoms Pain Other Bowel Symptoms Feces sits inside her anus requiring digital removal. Bowel Movement Frequency one daily [place] Stool Chart Type 1-7 4 [place] Stool Chart Comments Digitally removes type 6 Pelvic Clock Pelvic Clock 12-3 Tenderness Pelvic Clock 3-6 Tenderness Pelvic Clock Other Nodule felt at 2 of PF clock and in the R lateral wall. Inter-Rectal Assessment Assessment in R sidelie: Tender initially at anal sphincter with digital insertion. Strength: lateral harrison and anteriorly towards vagina 3/5, coccyx end is 0/5. Deep PF muscles - strength 1/5 . Prolapse Cystocele Grade 2 Rectocele Grade 1 Prolapse Comments Above assessed in [facility]. Contraction Ability Voluntary Contraction Absent Voluntary Relaxation Weak Manual Muscle Testing Left 0 Manual Muscle Testing Right 0 Manual Muscle Testing Anterior 0 Manual Muscle Testing Posterior 0 Muscle Endurance (Seconds) 0 Number of Quick Contractions In 10 0 Seconds Comments Pelvic Floor Comments Internal vaginal assessment results above. Inter rectal assessment: Weakness of deep PF muscle strength is 1/5. Anal sphincter is 4/5 PT-OP-J Posture/Palpation/Skin Start: 02/20/24 08:40 Freq: Status: Active Protocol: Document 02/20/24 13:50 LRN (Rec: 02/20/24 14:38 LRN [id number]) Posture Evaluation Position Standing Shoulder Posture (L) Elevated Scapula Posture (L) Elevated Arm Posture (L) Internally Rotated,(R) Internally Rotated Pelvis Posture Anteriorly Tilted Comments Posture Comments Dowagers, hump, flattened upper T/S, decr'd lower T/S curvature. PT-OP-K Range of Motion Start: 02/20/24 08:40 Freq: Status: Active Protocol: Document 02/20/24 13:50 LRN (Rec: 02/20/24 14:38 LRN [id number]) Lumbar Spine Range of Motion Lumbar Spine Active Degrees Testing Position Standing Flexion 70 Extension 13 Rotation Left 20 Rotation Right 10 Lateral Flexion Left 15 Lateral Flexion Right 10 Hip Goniometric Range of Motion Hip Right Passive Testing Position Supine Flexion w/Knee Flexed 105 Internal Rotation 40 External Rotation 55 Left Passive Testing Position Supine Flexion w/Knee Flexed 115 Internal Rotation 35 External Rotation 40 PT-OP-M Strength Start: 02/20/24 08:40 Freq: Status: Active Protocol: Document 02/20/24 13:50 LRN (Rec: 02/20/24 14:38 LRN [id number]) Hip Strength Hip Manual Muscle Testing Right Flexion (L2) 3+ Fair+ External Rotation 5 Normal Internal Rotation 4+ Good+ Left Flexion (L2) 3 Fair External Rotation 5 Normal Internal Rotation 5 Normal PT-OP-Q Treatments Start: 02/20/24 08:40 Freq: Status: Active Protocol: Document 02/20/24 13:50 LRN (Rec: 02/20/24 14:38 LRN [id number]) Self-Care/Home Management Treatment Education Other Education Discussed results of evaluation, goals, and plan of care (POC) with pt, discussed attendance/cx/dns policy; pt agreeable to goals, attendance /cx/dns policy and POC. Activities Self-Care/Home Management Activities Issued & reviewed HEP: Deep breathing education and handout issued. I/S pt in sitting posture for BM (knees high) and breathing with BM. Slight push during later BM's if needed. PT-OP-T Assessment and Plan Start: 02/20/24 08:40 Freq: Status: Active Protocol: Document 02/20/24 13:50 LRN (Rec: 02/20/24 14:38 LRN [id number]) Physical Therapy Assessment Rehab Potential Rehabilitation Potential Good Evaluation Complexity Number of Personal Factors/Comorbidities 1-2 Number of Body Systems Impaired 4 or More Clinical Presentation at Evaluation Evolving Impairments Impairments Activity Tolerance, Coordination,Pain,Posture,ROM, Strength,Transfers Goals Four Impairment Deep PF strength is 0/5 (anal sphincter is 3/5 except at coccyx end) Short Term Goal (STG) Pt will be able to perform an isolated PF contraction STG Duration 6 wks-04/03/24 Fpc Goal (LTG) Improve PF strength to 3/5 and be able to relax PF a moderate to brisk response on relaxation. LTG Duration 12 wks-05/15/24 Three Impairment Tenderness of PF in 2-5 of PF clock Short Term Goal (STG) Pt will be educated in self trigger point treatment. STG Duration 6 wks-04/03/24 Account Engineer Goal (LTG) Decrease tightness and eliminate tenderness of 2-5 of PF clock. LTG Duration 12 wks-05/15/24 Two Impairment Incomplete bowel emptying. Short Term Goal (STG) Pt will be educated in best posturing for having a BM and use of deep breathing to coordinate emptying. STG Duration 4 wks-03/20/24 Account Engineer Goal (LTG) Pt will be able to have a normal bowel movement (BM) w/o having to digitally remove remaining feces from anus 1-2x after having a BM. LTG Duration 12 wks-05/15/24 One Impairment Pt lacks an independent self care HEP. Short Term Goal (STG) Pt educated in proper core abdominal pressure management with transfers and ADLs. STG Duration 4 wks-03/20/24 Account Engineer Goal (LTG) Pt will be independent in a self care HEP for PF strengthening. LTG Duration 12 wks-05/15/24 Assessment Summary Assessment Pt is a 78 yo female who presents with tenderness ( probable tightness) of anal sphincter and L vaginal wall, with lateral harrison & posterior strength is 3/5; there is very poor coordination when mariel her PF with pt substituting PF contraction with other muscles (gluteals, abdominals and hip ADDs); therefore PF strength is 0-1/5 , also w/palpation she appears to have a nodule at 2 of PF clock and possibly something on the R lateral wall region that will probably need to be assessed. She has excessive tissue at 6 of PF clock indicating probable rectocele. The pt will benefit from skilled physical therapy to work towards achieving the above stated goals. Physical Therapy Plan Frequency and Duration Frequency of Treatment 1x/Week Duration of treatment (weeks) 12 Plan of Care Start Date 02/20/24 Plan of Care End Date 05/15/24 Therapeutic Interventions Therapeutic Interventions Coordination Training,Home Exercise Program,Manual Therapy,Neuromuscular Re- education,Self-Care/Home Management,Soft Tissue Mobilization,Therapeutic Activities,Therapeutic Exercises Modalities Biofeedback Other Therapeutic Interventions E-Stim for neural re-education . Other Referrals/Consults Referrals/Consults Recommended Internal assessment of palpable vaginal nodules of the PF at 2 of the PF clock and one in the R lateral wall. Next Visit Focus/Plan Next Note Type Treatment Note Next Visit Plan Assess Hip AB/AD/ext strength, BM positioning & review best voiding positioning and discuss squatty potty use; and assess deep breathing and train for BM's. Issue Bladder dairy and discuss fluid intake (AM/PM), bowel movement frequency, & nighttime voiding frequency norms, discuss stool types ( issue chart for pt to track); start BM massage and discuss food types. Pt education and training in proper Kegel without use of substitute muscles and focusing on quick PF relaxation. Pt education: vulvar/genital care, proper deep breathing, and breathing for core pressure management with transfer for proper core pressure management, and body mechanics. EX: Deep PF ms strengthening and neural awareness training, core strengthening hip stretching w/caution for sanjuana TKA's. improve hip mobility. POC: Pt education, Manual therapy. ? Biofeedback with vaginal sensor. Therapeutic Exercises, Therapeutic Activities, Neuromuscular Reeducation.
--- NOTE | 2024-03-06 12:27 | PT.OTN ---
Current Diagnoses Other specified disorders of muscle (03/06/24) Full incontinence of feces (03/06/24) Physical Therapy Treatment Note PT-OP-A Visit Information Start: 02/20/24 08:40 Freq: Status: Active Protocol: Document 03/06/24 11:22 LRN (Rec: 03/06/24 12:25 LRN [id number]) Out-Patient Physical Therapy Visit Information Visit Information Visit Type Treatment Note Visit Start Time 11:22 Visit Stop Time 12:04 Visit Number 2 Evaluation Information Evaluation Date 02/20/24 Precautions Precautions Osteoporosis, Arthritis, sanjuana knee replacements in 2016 PT-OP-B Current Condition Start: 02/20/24 08:40 Freq: Status: Active Protocol: Document 02/20/24 13:50 LRN (Rec: 02/20/24 14:38 LRN [id number]) Current Condition History of Current Condition Onset Date 2 months ago Current Complaints Mild anal leakage at the opening, skin burning pain diaper rash like History of Current Condition Insidious onset within the past 6 yr, a little anal leakage. Has noticed if she stays away from sugary foods, she has BM's that are less extra-soft. When really bad she takes anti-diarrhea medicine. Doesn't wear a pad because the fecal matter stays in the anus. A good day is when she has a BM and no leakage afterward. A slightly worse day is when she has a BM but has to go back and clean out the anus once with her finger. A bad day is when she has to go back several times to remove the feces by finger. Prior Treatments and Tests None Developmental History Developmental History 4G4P vaginal births w/o complications, except tore with first child and was told she might someday need a repair of something. Treatment Goals Patient/Caregiver Goals Pt goals: - to have a normal bowel movement to not have to digitally remove remaining feces from anus, HEP. Personal Factors Other Personal Factors That May Effect Arthritis, sanjuana knee Therapy/Recovery replacements in 2016. PT-OP-C Subjective Start: 02/20/24 08:40 Freq: Status: Active Protocol: Document 03/06/24 11:22 LRN (Rec: 03/06/24 12:25 LRN [id number]) OP-PT Subjective Patient Comments Patient Comments Hasn't had any difficulty BM's eliminating. PT-OP-I Pelvic Floor Start: 02/20/24 08:40 Freq: Status: Active Protocol: Document 02/20/24 13:50 LRN (Rec: 02/20/24 14:38 LRN [id number]) Pelvic Floor Assessment Bowel Bowel Surgery No Bowel Symptoms Pain Other Bowel Symptoms Feces sits inside her anus requiring digital removal. Bowel Movement Frequency one daily [place] Stool Chart Type 1-7 4 [place] Stool Chart Comments Digitally removes type 6 Pelvic Clock Pelvic Clock 12-3 Tenderness Pelvic Clock 3-6 Tenderness Pelvic Clock Other Nodule felt at 2 of PF clock and in the R lateral wall. Inter-Rectal Assessment Assessment in R sidelie: Tender initially at anal sphincter with digital insertion. Strength: lateral harrison and anteriorly towards vagina 3/5, coccyx end is 0/5. Deep PF muscles - strength 1/5 . Prolapse Cystocele Grade 2 Rectocele Grade 1 Prolapse Comments Above assessed in [place]. Contraction Ability Voluntary Contraction Absent Voluntary Relaxation Weak Manual Muscle Testing Left 0 Manual Muscle Testing Right 0 Manual Muscle Testing Anterior 0 Manual Muscle Testing Posterior 0 Muscle Endurance (Seconds) 0 Number of Quick Contractions In 10 0 Seconds Comments Pelvic Floor Comments Internal vaginal assessment results above. Inter rectal assessment: Weakness of deep PF muscle strength is 1/5. Anal sphincter is 4/5 PT-OP-J Posture/Palpation/Skin Start: 02/20/24 08:40 Freq: Status: Active Protocol: Document 02/20/24 13:50 LRN (Rec: 02/20/24 14:38 LRN [id number]) Posture Evaluation Position Standing Shoulder Posture (L) Elevated Scapula Posture (L) Elevated Arm Posture (L) Internally Rotated,(R) Internally Rotated Pelvis Posture Anteriorly Tilted Comments Posture Comments Dowagers, hump, flattened upper T/S, decr'd lower T/S curvature. PT-OP-K Range of Motion Start: 02/20/24 08:40 Freq: Status: Active Protocol: Document 02/20/24 13:50 LRN (Rec: 02/20/24 14:38 LRN [id number]) Lumbar Spine Range of Motion Lumbar Spine Active Degrees Testing Position Standing Flexion 70 Extension 13 Rotation Left 20 Rotation Right 10 Lateral Flexion Left 15 Lateral Flexion Right 10 Hip Goniometric Range of Motion Hip Right Passive Testing Position Supine Flexion w/Knee Flexed 105 Internal Rotation 40 External Rotation 55 Left Passive Testing Position Supine Flexion w/Knee Flexed 115 Internal Rotation 35 External Rotation 40 PT-OP-M Strength Start: 02/20/24 08:40 Freq: Status: Active Protocol: Document 03/06/24 11:22 LRN (Rec: 03/06/24 12:25 LRN [id number]) Hip Strength Hip Manual Muscle Testing Right Extension (S1) 3 Fair Abduction 5 Normal Adduction 1 Trace Left Extension (S1) 5 Normal Abduction 5 Normal Adduction 2 Poor PT-OP-Q Treatments Start: 02/20/24 08:40 Freq: Status: Active Protocol: Document 03/06/24 11:22 LRN (Rec: 03/06/24 12:25 LRN [id number]) Therapeutic Exercises Supine Exercises Fig 4 stretch Supine Exercise Name Fig 4 & SL BKFO hip ER stretch Side bilateral Reps/Minutes 7' Comments Tried a couple diff positions with Fig 4 position best for hip stretch Deep Breathing Supine Exercise Name Reviewed and practice working towards 6 inhale/exhale. Reps/Minutes 8' Comments Cued to relax chest and slow breath and full abdomen excursion Sitting Exercises Hip ER stretch Sitting Exercise Name Sitting Fig 4 stetch with bent knees Side bilateral Reps/Minutes 4' Comments Pt able to position, but lower leg angle was ~45 deg' - too tight Neuro Re-Education Treatment Other Activities PF awareness training Details Use of PT then pt palp of PF, EO/EC w/deep breathing, visual feedback Reps/Duration 23' Self-Care/Home Management Treatment Education Other Education Reviewed/educated pt in best posturing for having a BM and use of deep breathing to coordinate emptying and use of step stools for elevation of knees above hips. Pt felt this was not a problem for her , but was receptive to information. Activities Self-Care/Home Management Activities Issued & reviewed HEP: Fig 4 stretch PT-OP-T Assessment and Plan Start: 02/20/24 08:40 Freq: Status: Active Protocol: Document 03/06/24 11:22 LRN (Rec: 03/06/24 12:25 LRN [id number]) Physical Therapy Assessment Goals Four Impairment Deep PF strength is 0/5 (anal sphincter is 3/5 except at coccyx end) Short Term Goal (STG) Pt will be able to perform an isolated PF contraction STG Duration 6 wks-04/03/24 Embosser Operator Goal (LTG) Improve PF strength to 3/5 and be able to relax PF a moderate to brisk response on relaxation. LTG Duration 12 wks-05/15/24 Three Impairment Tenderness of PF in 2-5 of PF clock Short Term Goal (STG) Pt will be educated in self trigger point treatment. STG Duration 6 wks-04/03/24 Embosser Operator Goal (LTG) Decrease tightness and eliminate tenderness of 2-5 of PF clock. LTG Duration 12 wks-05/15/24 Two Impairment Incomplete bowel emptying. Short Term Goal (STG) Pt will be educated in best posturing for having a BM and use of deep breathing to coordinate emptying. STG Duration 4 wks-03/20/24 (03/06/24: MET GOAL) Embosser Operator Goal (LTG) Pt will be able to have a normal bowel movement (BM) w/o having to digitally remove remaining feces from anus 1-2x after having a BM. LTG Duration 12 wks-05/15/24 One Impairment Pt lacks an independent self care HEP. Short Term Goal (STG) Pt educated in proper core abdominal pressure management with transfers and ADLs. STG Duration 4 wks-03/20/24 Mcfp Goal (LTG) Pt will be independent in a self care HEP for PF strengthening. 03/06/24: HEP: Fig 4 stretch . LTG Duration 12 wks-05/15/24 progressed 03/06/24 Assessment Summary Assessment 78 yo female with PF weakness of deep muscles, tightness/ tenderness of anal spincter and L vaginal wall (posterior strength 3/5); poor awareness of PF muscles and inability to contract her PF w/o substitute muscles. On initial eval she had a nodule at 2 of PF clock and possibly something on the R lateral wall region that will probably need to be assessed, and excessive tissue at 6 of PF clock indicating possible rectocele. Today she demonstrated good deep breathing technique at 4 sec in/out breaths. Physical Therapy Plan Frequency and Duration Frequency of Treatment 1x/Week Duration of treatment (weeks) 12 Plan of Care Start Date 02/20/24 Plan of Care End Date 05/15/24 Next Visit Focus/Plan Next Note Type Treatment Note Next Visit Plan Recheck deep breathing if needed and assess PF awareness with contractions. Vemg biofeedback with trial of estim w/lot of lube. Educate in BM massage for if needed. Exercise: proper Kegel without use of substitute muscles and focusing on quick PF relaxation. Pt education: vulvar/genital care, proper deep breathing, and breathing for core pressure management with transfer for proper core pressure management, and body mechanics. EX: Deep PF ms strengthening and neural awareness training of PF contraction, core strengthening hip stretching w /caution for sanjuana TKA's. improve hip mobility. POC: Pt education, Manual therapy. ? Biofeedback with vaginal sensor. Therapeutic Exercises, Therapeutic Activities, Neuromuscular Reeducation.
--- NOTE | 2024-03-13 12:21 | PT.OTN ---
Current Diagnoses Other specified disorders of muscle (03/13/24) Full incontinence of feces (03/13/24) Physical Therapy Treatment Note PT-OP-A Visit Information Start: 02/20/24 08:40 Freq: Status: Active Protocol: Document 03/13/24 11:28 LRN (Rec: 03/13/24 12:19 LRN [id number]) Out-Patient Physical Therapy Visit Information Visit Information Visit Type Treatment Note Visit Start Time 11:28 Visit Stop Time 12:06 Visit Number 3 Evaluation Information Evaluation Date 02/20/24 Precautions Precautions Osteoporosis, Arthritis, sanjuana knee replacements in 2016 PT-OP-B Current Condition Start: 02/20/24 08:40 Freq: Status: Active Protocol: Document 02/20/24 13:50 LRN (Rec: 02/20/24 14:38 LRN [id number]) Current Condition History of Current Condition Onset Date 2 months ago Current Complaints Mild anal leakage at the opening, skin burning pain diaper rash like History of Current Condition Insidious onset within the past 6 yr, a little anal leakage. Has noticed if she stays away from sugary foods, she has BM's that are less extra-soft. When really bad she takes anti-diarrhea medicine. Doesn't wear a pad because the fecal matter stays in the anus. A good day is when she has a BM and no leakage afterward. A slightly worse day is when she has a BM but has to go back and clean out the anus once with her finger. A bad day is when she has to go back several times to remove the feces by finger. Prior Treatments and Tests None Developmental History Developmental History 4G4P vaginal births w/o complications, except tore with first child and was told she might someday need a repair of something. Treatment Goals Patient/Caregiver Goals Pt goals: - to have a normal bowel movement to not have to digitally remove remaining feces from anus, HEP. Personal Factors Other Personal Factors That May Effect Arthritis, sanjuana knee Therapy/Recovery replacements in 2016. PT-OP-C Subjective Start: 02/20/24 08:40 Freq: Status: Active Protocol: Document 03/13/24 11:28 LRN (Rec: 03/13/24 12:19 LRN [id number]) OP-PT Subjective Patient Comments Patient Comments No difficulty BM's eliminating . States she stopped eating bread and her BM's are now firmer and not leaking. Using cardboard boxes to elevate knees for BMs. PT-OP-I Pelvic Floor Start: 02/20/24 08:40 Freq: Status: Active Protocol: Document 02/20/24 13:50 LRN (Rec: 02/20/24 14:38 LRN [id number]) Pelvic Floor Assessment Bowel Bowel Surgery No Bowel Symptoms Pain Other Bowel Symptoms Feces sits inside her anus requiring digital removal. Bowel Movement Frequency one daily Wilkin Stool Chart Type 1-7 4 Wilkin Stool Chart Comments Digitally removes type 6 Pelvic Clock Pelvic Clock 12-3 Tenderness Pelvic Clock 3-6 Tenderness Pelvic Clock Other Nodule felt at 2 of PF clock and in the R lateral wall. Inter-Rectal Assessment Assessment in R sidelie: Tender initially at anal sphincter with digital insertion. Strength: lateral harrison and anteriorly towards vagina 3/5, coccyx end is 0/5. Deep PF muscles - strength 1/5 . Prolapse Cystocele Grade 2 Rectocele Grade 1 Prolapse Comments Above assessed in [place]. Contraction Ability Voluntary Contraction Absent Voluntary Relaxation Weak Manual Muscle Testing Left 0 Manual Muscle Testing Right 0 Manual Muscle Testing Anterior 0 Manual Muscle Testing Posterior 0 Muscle Endurance (Seconds) 0 Number of Quick Contractions In 10 0 Seconds Comments Pelvic Floor Comments Internal vaginal assessment results above. Inter rectal assessment: Weakness of deep PF muscle strength is 1/5. Anal sphincter is 4/5 PT-OP-J Posture/Palpation/Skin Start: 02/20/24 08:40 Freq: Status: Active Protocol: Document 02/20/24 13:50 LRN (Rec: 02/20/24 14:38 LRN [id number]) Posture Evaluation Position Standing Shoulder Posture (L) Elevated Scapula Posture (L) Elevated Arm Posture (L) Internally Rotated,(R) Internally Rotated Pelvis Posture Anteriorly Tilted Comments Posture Comments Dowagers, hump, flattened upper T/S, decr'd lower T/S curvature. PT-OP-K Range of Motion Start: 02/20/24 08:40 Freq: Status: Active Protocol: Document 02/20/24 13:50 LRN (Rec: 02/20/24 14:38 LRN [id number]) Lumbar Spine Range of Motion Lumbar Spine Active Degrees Testing Position Standing Flexion 70 Extension 13 Rotation Left 20 Rotation Right 10 Lateral Flexion Left 15 Lateral Flexion Right 10 Hip Goniometric Range of Motion Hip Right Passive Testing Position Supine Flexion w/Knee Flexed 105 Internal Rotation 40 External Rotation 55 Left Passive Testing Position Supine Flexion w/Knee Flexed 115 Internal Rotation 35 External Rotation 40 PT-OP-M Strength Start: 02/20/24 08:40 Freq: Status: Active Protocol: Document 03/06/24 11:22 LRN (Rec: 03/06/24 12:25 LRN [id number]) Hip Strength Hip Manual Muscle Testing Right Extension (S1) 3 Fair Abduction 5 Normal Adduction 1 Trace Left Extension (S1) 5 Normal Abduction 5 Normal Adduction 2 Poor PT-OP-Q Treatments Start: 02/20/24 08:40 Freq: Status: Active Protocol: Document 03/13/24 11:28 LRN (Rec: 03/13/24 12:19 LRN [id number]) Therapeutic Exercises Supine Exercises Kegel f/b relaxation Reps/Minutes 10 SH x 10 (15') Comments Extra time taken for training to isolate kegel and pt awareness of PF Fig 4 stretch Supine Exercise Name Fig 4 & SL BKFO hip ER stretch Side bilateral Reps/Minutes 10' (twice as many on R side) Deep Breathing Supine Exercise Name 6 inhale/exhale, hands on chest/abdomen. Reps/Minutes 8' Comments Cued to relax chest and slow breath and full abdomen excursion Manual Therapy Treatment Soft Tissue Mobilization Bowel massage Body Location Bowel massage & pt training in self care massage Intensity/Depth Moderate Body Position Supine Comments Reviewed handout for bowel massage with pt following direction for self massage during training. Self-Care/Home Management Treatment Activities Self-Care/Home Management Activities Issued handout for Bowel massage. PT-OP-T Assessment and Plan Start: 02/20/24 08:40 Freq: Status: Active Protocol: Document 03/13/24 11:28 LRN (Rec: 03/13/24 12:19 LRN [id number]) Physical Therapy Assessment Goals Four Impairment Deep PF strength is 0/5 (anal sphincter is 3/5 except at coccyx end) Short Term Goal (STG) Pt will be able to perform an isolated PF contraction. 03/13/24: Pt was able to identify PF contraction in isolation of substitute muscles of glutes, abdomen, hip AD's. STG Duration 6 wks-04/03/24 (03/13/24: MET GOAL) Snf Goal (LTG) Improve PF strength to 3/5 and be able to relax PF a moderate to brisk response on relaxation. LTG Duration 12 wks-05/15/24 Three Impairment Tenderness of PF in 2-5 of PF clock Short Term Goal (STG) Pt will be educated in self trigger point treatment. STG Duration 6 wks-04/03/24 Snf Goal (LTG) Decrease tightness and eliminate tenderness of 2-5 of PF clock. LTG Duration 12 wks-05/15/24 Two Impairment Incomplete bowel emptying. Short Term Goal (STG) Pt will be educated in best posturing for having a BM and use of deep breathing to coordinate emptying. STG Duration 4 wks-03/20/24 (03/06/24: MET GOAL) Snf Goal (LTG) Pt will be able to have a normal bowel movement (BM) w/o having to digitally remove remaining feces from anus 1-2x after having a BM. 03/13/24: No longer have to digitally remove feces. LTG Duration 12 wks-05/15/24 (03/13/24: MET GOAL) One Impairment Pt lacks an independent self care HEP. Short Term Goal (STG) Pt educated in proper core abdominal pressure management with transfers and ADLs. STG Duration 4 wks-03/20/24 Educational/Development Assistant Goal (LTG) Pt will be independent in a self care HEP for PF strengthening. 03/06/24: HEP: Fig 4 stretch . 03/13/24: HEP: Bowel massage . LTG Duration 12 wks-05/15/24 progressed 03/13/24 Assessment Summary Assessment 78 yo female, initially with PF weakness of deep muscles, tightness/tenderness of anal spincter and L vaginal wall ( posterior strength 3/5), possible rectocele. Today, it appears the stopping of her eating bread that was supposed to have a lot of fiber has lead to firmer stools and not leaking of stool fluids. She is able to perform an isolated kegel and appears aware of her PF tightening and relaxing and after training was able to perform a proper deep breathing. Reassessment of PF tenderness tightness is needed. Physical Therapy Plan Frequency and Duration Frequency of Treatment 1x/Week Duration of treatment (weeks) 12 Plan of Care Start Date 02/20/24 Plan of Care End Date 05/15/24 Next Visit Focus/Plan Next Note Type Treatment Note Next Visit Plan Educate in proper core abdominal pressure management with transfers and ADLs. Review BM massage and sitting hip ER stretch. Assess for PF tightness/tenderenss and ability to relax PF after contraction. PF stretching if needed (probably won't need Vemg treatment for PF relaxation). Exercise: proper Kegel focusing on quick PF relaxation. Pt education: proper deep breathing, and breathing for core pressure management with transfer for proper core pressure management, and body mechanics. EX: Deep PF ms strengthening, core strengthening hip stretching w/caution for sanjuana TKA's, ex's to improve hip mobility. POC: Pt education, Manual therapy. ? Biofeedback with vaginal sensor. Therapeutic Exercises, Therapeutic Activities, Neuromuscular Reeducation.
--- NOTE | 2024-03-20 12:23 | PT.OTN ---
Addendum entered and electronically signed by Fany Ireland, PT 03/20/24 16:21: Late entry PUF score - 3. Original Note: Current Diagnoses Other specified disorders of muscle (03/20/24) Full incontinence of feces (03/20/24) Physical Therapy Treatment Note PT-OP-A Visit Information Start: 02/20/24 08:40 Freq: Status: Active Protocol: Document 03/20/24 11:20 LRN (Rec: 03/20/24 12:21 LRN [id number]) Out-Patient Physical Therapy Visit Information Visit Information Visit Type Treatment Note Visit Start Time 11:20 Visit Stop Time 12:01 Visit Number 4 Evaluation Information Evaluation Date 02/20/24 Precautions Precautions Osteoporosis, Arthritis, sanjuana knee replacements in 2016 PT-OP-B Current Condition Start: 02/20/24 08:40 Freq: Status: Active Protocol: Document 02/20/24 13:50 LRN (Rec: 02/20/24 14:38 LRN [id number]) Current Condition History of Current Condition Onset Date 2 months ago Current Complaints Mild anal leakage at the opening, skin burning pain diaper rash like History of Current Condition Insidious onset within the past 6 yr, a little anal leakage. Has noticed if she stays away from sugary foods, she has BM's that are less extra-soft. When really bad she takes anti-diarrhea medicine. Doesn't wear a pad because the fecal matter stays in the anus. A good day is when she has a BM and no leakage afterward. A slightly worse day is when she has a BM but has to go back and clean out the anus once with her finger. A bad day is when she has to go back several times to remove the feces by finger. Prior Treatments and Tests None Developmental History Developmental History 4G4P vaginal births w/o complications, except tore with first child and was told she might someday need a repair of something. Treatment Goals Patient/Caregiver Goals Pt goals: - to have a normal bowel movement to not have to digitally remove remaining feces from anus, HEP. Personal Factors Other Personal Factors That May Effect Arthritis, sanjuana knee Therapy/Recovery replacements in 2016. PT-OP-C Subjective Start: 02/20/24 08:40 Freq: Status: Active Protocol: Document 03/20/24 11:20 LRN (Rec: 03/20/24 12:21 LRN [id number]) OP-PT Subjective Patient Comments Patient Comments Doing really good, one episode of bowel leakage because ate too much cherries. Thnks her problem is getting fiber content incheck. Pt was told to avoid sleeping on side due to back pain and wants her to improve core strength. PT-OP-I Pelvic Floor Start: 02/20/24 08:40 Freq: Status: Active Protocol: Document 03/20/24 11:20 LRN (Rec: 03/20/24 12:21 LRN [id number]) Pelvic Floor Assessment Pelvic Clock Pelvic Clock Other No tenderness around the PF clock or externally around anus. Prolapse Cystocele Grade 2 Rectocele Grade 1 Prolapse Comments Above assessed in [facility]. Contraction Ability Voluntary Contraction Weak Voluntary Relaxation Moderate Manual Muscle Testing Left 1 Manual Muscle Testing Right 1 Manual Muscle Testing Anterior 0 Manual Muscle Testing Posterior 3 Comments Pelvic Floor Comments Visible anal wink. PT-OP-J Posture/Palpation/Skin Start: 02/20/24 08:40 Freq: Status: Active Protocol: Document 02/20/24 13:50 LRN (Rec: 02/20/24 14:38 LRN [id number]) Posture Evaluation Position Standing Shoulder Posture (L) Elevated Scapula Posture (L) Elevated Arm Posture (L) Internally Rotated,(R) Internally Rotated Pelvis Posture Anteriorly Tilted Comments Posture Comments Dowagers, hump, flattened upper T/S, decr'd lower T/S curvature. PT-OP-K Range of Motion Start: 02/20/24 08:40 Freq: Status: Active Protocol: Document 02/20/24 13:50 LRN (Rec: 02/20/24 14:38 LRN [id number]) Lumbar Spine Range of Motion Lumbar Spine Active Degrees Testing Position Standing Flexion 70 Extension 13 Rotation Left 20 Rotation Right 10 Lateral Flexion Left 15 Lateral Flexion Right 10 Hip Goniometric Range of Motion Hip Right Passive Testing Position Supine Flexion w/Knee Flexed 105 Internal Rotation 40 External Rotation 55 Left Passive Testing Position Supine Flexion w/Knee Flexed 115 Internal Rotation 35 External Rotation 40 PT-OP-M Strength Start: 02/20/24 08:40 Freq: Status: Active Protocol: Document 03/06/24 11:22 LRN (Rec: 03/06/24 12:25 LRN [id number]) Hip Strength Hip Manual Muscle Testing Right Extension (S1) 3 Fair Abduction 5 Normal Adduction 1 Trace Left Extension (S1) 5 Normal Abduction 5 Normal Adduction 2 Poor PT-OP-Q Treatments Start: 02/20/24 08:40 Freq: Status: Active Protocol: Document 03/20/24 11:20 LRN (Rec: 03/20/24 12:21 LRN [id number]) Therapeutic Exercises Supine Exercises Lumbar core stab program Supine Exercise Name TA & lower TA contraction, neutral spine with breathing Reps/Minutes 11' Comments Also reviewed TA w/heel slide & leg lift. DKTC stretch for PF Reps/Minutes 3' Long Hold Kegels Reps/Minutes 6' Comments PF MMT Quick Kegels Reps/Minutes 4' Comments Palpation for tenderness and superficial ms strength. Fig 4 stretch Supine Exercise Name Verbal review Reps/Minutes 1' Neuro Re-Education Treatment Movement Re-Education Movement Re-education Activities Transfer and mvmt training with coordination of core abdominal pressure management with transfers (stand<>sit<> supine) and ADLs (reaching fwd & upward, picking up objects/ gardening, vacuumng/mopping, dressing). Self-Care/Home Management Treatment Activities Self-Care/Home Management Activities Issued HEP: core progressive stabilization program (TA, lower TA, TA/multifidus, core stab w/heel slide, core stab with leg lift). PT-OP-T Assessment and Plan Start: 02/20/24 08:40 Freq: Status: Active Protocol: Document 03/20/24 11:20 LRN (Rec: 03/20/24 12:21 LRN [id number]) Physical Therapy Assessment Goals Four Impairment Deep PF strength is 0/5 (anal sphincter is 3/5 except at coccyx end) Short Term Goal (STG) Pt will be able to perform an isolated PF contraction. 03/13/24: Pt was able to identify PF contraction in isolation of substitute muscles of glutes, abdomen, hip AD's. STG Duration 6 wks-04/03/24 (03/13/24: MET GOAL) Treating Plant Pumper Goal (LTG) Improve PF strength to 3/5 and be able to relax PF a moderate to brisk response on relaxation. 03/20/24: PF strength is 0-1/ 5 with palpable PF relaxation. LTG Duration 12 wks-05/15/24 (03/20/24: NOT MET GOAL) Three Impairment Tenderness of PF in 2-5 of PF clock Short Term Goal (STG) Pt will be educated in self trigger point treatment. 03/20/24: Not needed due to no PF tenderness. STG Duration 6 wks-04/03/24 (03/20/24: Goal not needed) Detention Goal (LTG) Decrease tightness and eliminate tenderness of 2-5 of PF clock. 03/20/24: No tightness or tenderness noted in PF on palpation. LTG Duration 12 wks-05/15/24 (03/20/24: MET GOAL) Two Impairment Incomplete bowel emptying. Short Term Goal (STG) Pt will be educated in best posturing for having a BM and use of deep breathing to coordinate emptying. STG Duration 4 wks-03/20/24 (03/06/24: MET GOAL) Treating Plant Pumper Goal (LTG) Pt will be able to have a normal bowel movement (BM) w/o having to digitally remove remaining feces from anus 1-2x after having a BM. 03/13/24: No longer have to digitally remove feces. LTG Duration 12 wks-05/15/24 (03/13/24: MET GOAL) One Impairment Pt lacks an independent self care HEP. Short Term Goal (STG) Pt educated in proper core abdominal pressure management with transfers and ADLs. STG Duration 4 wks-03/20/24 (03/20/24: MET GOAL) Treating Plant Pumper Goal (LTG) Pt will be independent in a self care HEP for PF strengthening. 03/06/24: HEP: Fig 4 stretch . 03/13/24: HEP: Bowel massage . 03/20/24: HEP: Pt I/S in Quick and Long hold Kegel exercise. Handout issued for core progressive stabilzation home program. LTG Duration 12 wks-05/15/24 (03/20/24: MET GOAL) Assessment Summary Assessment Pt is a 78 yo female, being seen for PF weakness of deep muscles, tightness/tenderness of anal spincter and L vaginal wall (posterior strength 3/5) , possible rectocele. The pt is able to have bowel movement w/o having to use her digit to expel her feces. She is having more consistent BMs and no longer c/o tenderness in the anus and there is no palpable tenderness of the PF. She does still have a very weak PF but has not symptoms of urinary or bowel leakage ( unless eating foods that she knows causes runny stool). The pt is happy with her condition at this time and requests discharge after addressing core weakness with a HEP. The pt demonstrates good knowledge of how to manage her core pressure and with addition of core stabilization exercises. The pt is ready to be discharged to her HEP. Physical Therapy Plan Frequency and Duration Frequency of Treatment 1x/Week Duration of treatment (weeks) 12 Plan of Care Start Date 02/20/24 Plan of Care End Date 05/15/24 Discharge Physical Therapy Discharge Reasons Patient Request Discharge Comments See assesmsleesa above. Thank you for your referral.
== END 2024-03-31 14:49 | disposition home or self-care (01) ==
LOC: PHYS 11:15
PROVIDERS: Family Provider Nurse Practitioner; PCP Nurse Practitioner; Referring Provider Nurse Practitioner; Visit Provider Nurse Practitioner
DX: R15.9 Full incontinence of feces (principal); M62.89 Other specified disorders of muscle
CPT/HCPCS: 97110; 97112; 97140; 97162; 97535

== ENCOUNTER → 2024-10-06 15:14 | Outpatient (CLI) | payer MEDICARE, SELFPAY | PROVIDERS: Family Provider Nurse Practitioner; PCP Student in an Organized Health Care Education/Training Program; Visit Provider Student in an Organized Health Care Education/Training Program | DX: R39.9 Unspecified symptoms and signs involving the genitourinary system (principal) | CPT/HCPCS: 87077; 87086; 87186 ==

== ENCOUNTER → 2024-12-11 09:52 | Outpatient (CLI) | payer MEDICARE, SELFPAY ==
[2024-12-11 11:03] LABS: Cholesterol 245 mg/dL (140-199); HDL Cholesterol 68 mg/dL (40-60); LDL Cholesterol Calculated 146 mg/dL (<100); Triglycerides 155 mg/dL (35-150)
[2024-12-11 11:18] LABS: Free T4, Direct Thyroxine 1.23 ng/dL (0.78-2.19)
[2024-12-11 11:32] LABS: Thyroid Stimulating Hormone 0.736 uIU/mL (0.47-4.68)
== END ==
LOC: LAB 09:53
PROVIDERS: Family Provider Nurse Practitioner; PCP Student in an Organized Health Care Education/Training Program; Referring Provider Student in an Organized Health Care Education/Training Program; Visit Provider Student in an Organized Health Care Education/Training Program
DX: E78.5 Hyperlipidemia, unspecified (principal); E03.9 Hypothyroidism, unspecified
CPT/HCPCS: 36415; 80061; 84439; 84443

== ENCOUNTER → 2024-12-23 11:35 | Outpatient (CLI) | payer MEDICARE, SELFPAY ==
--- NOTE | 2024-12-23 11:35 | DI.MG.S_ITS ---
MM screening mammo BI: 12/23/2024. BI-RADS: 1 CLINICAL: 79-year old female for bilateral screening mammogram. Tyrer-Cuzick lifetime risk of 2.8%. No personal or first-degree family history of breast cancer. PRIOR EXAMS 07/30/2023, 07/17/2022, 12/29/2021, 06/29/2021, 06/28/2020, 06/16/2019, 06/05/2018, 05/30/2017, 05/07/2016, 01/26/2015. MAMMOGRAPHY TECHNIQUE: 2D and 3D (tomosynthesis) digital mammographic views obtained, with additional images as needed for full coverage. Current study was also evaluated with a Computer Aided Detection (CAD) system. DENSITY B. There are scattered areas of fibroglandular density. MAMMOGRAPHY FINDINGS Bilateral: No suspicious mass, asymmetry, microcalcification, or other abnormality seen. No significant change from comparison. IMPRESSION: * No evidence of malignancy. RECOMMENDATIONS Bilateral * Annual screening mammography. OVERALL ASSESSMENT CATEGORY BI-RADS-1: Negative. The [employer] recommends annual screening mammography beginning at age 40 for women with average risk of breast cancer. ELECTRONICALLY SIGNED: Amie Altamirano M.D. on 12/23/2024 at 07:54:55 PM PT Interpreting Station ID: [id number]
== END ==
PROVIDERS: Family Provider Nurse Practitioner; PCP Student in an Organized Health Care Education/Training Program; Referring Provider Student in an Organized Health Care Education/Training Program; Visit Provider Student in an Organized Health Care Education/Training Program
DX: Z12.31 Encounter for screening mammogram for malignant neoplasm of breast (principal)
CPT/HCPCS: 77063; 77067

== ENCOUNTER → 2025-03-23 07:03 | Outpatient (CLI) | payer MEDICARE, SELFPAY ==
[2025-03-23 08:02] LABS: Cholesterol 231 mg/dL (140-199); HDL Cholesterol 61 mg/dL (40-60); Triglycerides 178 mg/dL (35-150)
== END ==
PROVIDERS: Family Provider Nurse Practitioner; PCP Student in an Organized Health Care Education/Training Program; Referring Provider Student in an Organized Health Care Education/Training Program; Visit Provider Student in an Organized Health Care Education/Training Program
DX: E78.5 Hyperlipidemia, unspecified (principal)
CPT/HCPCS: 36415; 80061